=== PATIENT | female | born 1965 | race Caucasian/White ===

== ENCOUNTER 2018-12-29 13:31 | Emergency (ER) | payer OTHER ==
[2018-12-29 14:00] VITALS: BP 123/68; PULSE 75; TEMP 98.2; BMI 21.9
--- NOTE | 2018-12-29 15:11 | PDOC ---
History of Present Illness - General History Source: Patient Exam Limitations: Language Barrier (phone patient accounts specialist ID#[id number]) <Kathy Earl - Last Filed: 12/29/18 15:06> <Brianda Langley - Last Filed: 12/30/18 16:19> - General Chief Complaint: Pain, Acute Stated Complaint: ABD PAIN Time Seen by Provider: 12/29/18 14:05 Past History - Psycho Social/Smoking Cessation Hx Smoking History: Current every day smoker Information on smoking cessation initiated: No <Kathy Earl - Last Filed: 12/29/18 15:06> <Brianda Langley - Last Filed: 12/30/18 16:19> - Past Medical History Allergies/Adverse Reactions: Allergies Allergy/AdvReac Type Severity Reaction Status Date / Time No Known Allergies Allergy Verified 12/29/18 13:55 Home Medications: Ambulatory Orders Diclofenac Sodium [Voltaren -] 75 mg PO BID 12/29/18 Docusate Sodium [Colace] 100 mg PO TID PRN #30 capsule 12/29/18 Hydrocortisone Acetate [Anusol Hc Suppository -] 25 mg RC DAILY #14 supp.rect Lidocaine 2% Uro-Jet [Xylocaine 2% Uro-Jet] 10 ml GT DAILY #5 cartridge Lidocaine 2% Uro-Jet [Xylocaine 2% Uro-Jet] 10 ml UR DAILY #5 cartridge *Physical Exam - Vital Signs Last Vital Signs Temp Pulse Resp BP Pulse Ox 98.2 F 75 18 123/68 98 12/29/18 13:58 12/29/18 13:58 12/29/18 13:58 12/29/18 13:58 12/29/18 13:58 - Physical Exam General Appearance: No: Apparent Distress Respiratory/Chest: positive: Lungs Clear, Normal Breath Sounds. negative: Respiratory Distress Cardiovascular: positive: Regular Rhythm, Regular Rate, S1, S2. negative: Murmur Gastrointestinal/Abdominal: positive: Normal Bowel Sounds, Soft. negative: Tender, Distended, Guarding, Rebound Rectal Exam: positive: hemorrhoids (nonthrombosed, not bleeding) Neurologic: positive: Alert, Normal Mood/Affect <Kathy Earl - Last Filed: 12/29/18 15:06> - Vital Signs Last Vital Signs Temp Pulse Resp BP Pulse Ox 98.2 F 75 18 123/68 98 12/29/18 13:58 12/29/18 13:58 12/29/18 13:58 12/29/18 13:58 12/29/18 13:58 <Brianda Langley - Last Filed: 12/30/18 16:19> Medical Decision Making - Medical Decision Making 53 y/o F hx of rectal CA (dx around 1 year ago in [place], has not yet started treatment) presents with rectal pain x 15 days. Patient is visiting from [place] and is returning in Mar. Mentions she was told by doctors to start chemo and XRT with possibly surgery as well, but patient is scared to start the treatment yet and is still deciding what to do regarding her cancer. States she may move to [place] and get second opinion from doctors here. Mentions occasional BRBPR only with wiping and only when she is straining. Mentions occasional constipation. Last normal BM was this morning (had no blood). Patient is passing gas. Patient is currently taking Voltaren for pain. Denies fever, sob, cp, abd pain, n/v, melena, urinary symptoms. Patient is post- menopause. Rectal pain - with hemorrhoids Is pending w/u re: her cancer No current suspicion for acute abdomen, acute GI bleed, SBO Will treat for hemorrhoids D/W Dr. Langley 12/29/18 15:07 <Kathy Earl - Last Filed: 12/29/18 15:06> - Medical Decision Making The patient was seen and evaluated in conjunction with midlevel provider under my direct supervision, ancillary studies were reviewed. I agree with the plan as outlined with CAMERON Earl. HPI, workup/dispo as outlined. VS reviewed, wnl. no adominal tenderness noted, has h/o hemorrhoids and rectal ca, likely causing pain. has not initiated treatment. anticipate discharge, pcp followup, return precautions, will provide instructions on close f/u and medications for hemorrhoid/rectal pain relief. 12/30/18 16:18 <Brianda Langley - Last Filed: 12/30/18 16:19> Discharge - Discharge Information Problems reviewed: Yes - Admission No - Additional Discharge Information Prescription Drug Monitoring Program (I-STOP) results: I-STOP not reviewed <MadyKathy - Last Filed: 12/29/18 15:06> <Brianda Langley [place] - Last Filed: 12/30/18 16:19> - Discharge Information Clinical Impression/Diagnosis: Hemorrhoids Qualifiers: Hemorrhoid type: unspecified Qualified Code(s): K64.9 - Unspecified hemorrhoids Condition: Stable Disposition: HOME - Additional Discharge Information Prescriptions: Docusate Sodium [Colace] 100 mg PO TID PRN #30 capsule PRN Reason: Constipation Hydrocortisone Acetate [Anusol Hc Suppository -] 25 mg RC DAILY #14 supp.rect Lidocaine 2% Uro-Jet [Xylocaine 2% Uro-Jet] 10 ml GT DAILY #5 cartridge Lidocaine 2% Uro-Jet [Xylocaine 2% Uro-Jet] 10 ml UR DAILY #5 cartridge - Patient Discharge Instructions Patient Printed Discharge Instructions: DI for Hemorrhoids Additional Instructions: Thank you for choosing [facility]. It was a pleasure taking care of you. Please take Colace as needed for constipation Use the lidocaine gel (topical) as needed over hemorrhoids to help with pain Also take the hemorrhoidal suppositories as indicated Please continue follow-up with your doctors regarding your cancer Return to the Emergency Department if your symptoms worsen or persist, you have fever, shortness of breath, chest pain, severe abdominal pain, vomiting, black stools or other concerning symptoms.
== END 2018-12-29 15:35 | disposition home or self-care (01) ==
LOC: JER 13:31
DX: K64.9 Unspecified hemorrhoids (principal); Z85.048 Personal history of other malignant neoplasm of rectum, rectosigmoid junction, and anus
CPT/HCPCS: 99281-25